=== PATIENT | male | born 1970 | race Caucasian/White ===

== ENCOUNTER 2018-10-10 12:44 | Emergency (ER) | payer BC, OTHER ==
[~2018-10-10] VITALS: Ht 180.3 cm; Wt 93.0 kg
[~2018-10-10 12:44] MED LIST: NOHOMEMEDICATIONS
[2018-10-10] MEDS ORDERED: FLEXERIL PO ×2 (12:47→13:57)
[2018-10-10] MEDS ORDERED: MOBIC15 MG PO (13:57)
[2018-10-10] MEDS ORDERED: NORCO 5-325 TA1 EACH PO (13:57)
[2018-10-10 13:58] VITALS: BP 116/75
== END 2018-10-10 13:59 | disposition home or self-care (01) ==
LOC: ER 12:44
DX: S16.1XXA Strain of muscle, fascia and tendon at neck level, initial encounter (principal); Z88.0 Allergy status to penicillin; Z88.6 Allergy status to analgesic agent; V89.0XXA Person injured in unspecified motor-vehicle accident, nontraffic, initial encounter; Y93.89 Activity, other specified; Y92.89 Other specified places as the place of occurrence of the external cause; Y99.8 Other external cause status

== ENCOUNTER 2018-11-17 12:13 | Inpatient (IN) | payer BC, OTHER ==
[~2018-11-17] VITALS: Ht 180.3 cm; Wt 86.2 kg
[2018-11-17] VITALS (14 sets, daily range): BP systolic 106–141; BP diastolic 69–100
--- NOTE | ~2018-11-17 | H ---
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 No prior cardiac history. He was working out on straight line in a gym when he had acute onset of sudden chest pain, pressure, right-sided. He has never experienced this before. It became severe and unremitting. He did drove home and [facility] brought him in. In the field, he had a recurrent of injury in the anterior wall. He has had significant 10/10 pain despite heparin, morphine and Ativan. ST segment elevation is significant in the anterior wall. This pain initiated approximately at 11:30 a.m. No prior history. He takes no medications. PAST MEDICAL HISTORY: Positive only for musculoskeletal bilateral carpal tunnel and ankle and wrist fractures and screws. 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 No children. He is . Social alcohol, no tobacco. FAMILY HISTORY: Positive for premature disease only involving his grandfather. REVIEW OF SYSTEMS: Essentially negative except for stated above. He has not really felt fatigue or any other symptomatology. PHYSICAL EXAMINATION: GENERAL: He appears to be fit and trim, but he is in significant discomfort. VITAL SIGNS: Pulse is 60s, blood pressure is fluctuating between 120 and 140 systolic. HEENT: Eyes reveal xanthelasmas. Pharynx is clear. NECK: Shows preserved upstrokes without JVD or bruits. LUNGS: Clear. CARDIOVASCULAR: Regular rate and rhythm, S1, S2, without murmur or gallop. ABDOMEN: Soft. No HSM or abdominal bruit. EXTREMITIES: Reveal no edema. Pulses are intact. NEUROLOGIC: Nonfocal. SKIN: Warm and dry without xanthoma or ulcer. MUSCULOSKELETAL: No gross joint deformity. ASSESSMENT: 1. Acute anterior wall myocardial infarction. 2. History of musculoskeletal fractures. [address] [address] HISTORY AND PHYSICAL Name: ASHWIN CADET [place] Room #: 170-5 ADM IN .R.#: [id number] Admission: 11/17/18 ������������������ Attend Phys: Joe White MD, Discharge: ������������������ Date of : 72 Report #: [id number] RECOMMENDATIONS AND PLAN: HIS ASPIRIN ALLERGIC AND PENICILLIN ALLERGIC, so no aspirin has been given. Heparin bolus and 80 mg of Lipitor. We will proceed to the catheterization lab for urgent and emergent intervention. It looks to be an extensive anterior wall myocardial infarction. Risks, benefits, alternatives were discussed with Robert and his . We will proceed on emergently. ��������������������������������������������� ���������������������������������������� By: ��������������������������������������������� 1335 1421 Joe White MD, FACC /nt
[~2018-11-17 12:13] MED LIST changes: +FLEXERIL PO; +MOBIC15 MG PO; +NORCO 5-325 TA1 EACH PO
[2018-11-17 12:32] LABS: HEMOGLOBIN 15.5 gm/dL (14.0-18.0); MCH 29.5 pg (26.0-34.0); MCHC 33.7 g/dL (28.0-37.0); MCV 87.4 fL (80.0-100.0); RBC 5.27 mil/uL (4.50-6.00); RDW 13.6 % (10.5-14.5); WBC 6.9 thou/uL (4.0-11.0)
[2018-11-17 12:36] LABS: ANION GAP 13 mmol/L (7-16); BUN 19 mg/dL (7-18); CALCIUM 9.7 mg/dL (8.5-10.1); CHLORIDE 101 mmol/L (98-107); CO2 25 mmol/L (21-32); CREATININE 1.4 mg/dL (0.7-1.3); GLUCOSE 146 mg/dL (74-106); POTASSIUM 3.2 mmol/L (3.5-5.1); SODIUM 139 mmol/L (136-145)
[2018-11-17 12:45] LABS: APTT 26.8 Seconds (24.5-32.8); INR 1.1; PROTIME 11.2 Seconds (9.3-11.4)
[2018-11-17 12:46] LABS: ALBUMIN 4.2 g/dL (3.4-5.0); DIRECT BILIRUBIN < 0.1 mg/dL (<0.1-0.3); SGOT 32 U/L (15-37); SGPT 36 U/L (30-65); TOTAL BILIRUBIN 0.4 mg/dL (<0.1-1.0); TOTAL PROTEIN 7.7 g/dL (6.4-8.2); TROPONIN-I 0.07 ng/mL (<0.06)
--- NOTE | 2018-11-17 19:30 | NUR ---
PATIENT ARRIVED FROM [facility]STRU[facility] BUS [place] AND [place]AXI, S/P CARDIAC CATH. RT GRION INTACT AND VSS. ON EPTIFIBATIDE DRIP. ADMISION COMPLETED, PATIENT OFF BED REST AND RT GRION SITE D/C/I. AND WILL CONTNUE WITH POC
[2018-11-18] VITALS: BP 124/90
[2018-11-18 00:09] VITALS: BP 124/90
[2018-11-18 03:25] LABS: HEMOGLOBIN 14.9 gm/dL (14.0-18.0); MCH 29.8 pg (26.0-34.0); MCHC 33.9 g/dL (28.0-37.0); MCV 88.1 fL (80.0-100.0); RBC 4.99 mil/uL (4.50-6.00); RDW 13.7 % (10.5-14.5); WBC 9.5 thou/uL (4.0-11.0)
--- NOTE | 2018-11-18 03:44 | NUR ---
ASSUMED PT CARE AT 1900. PT A/OX4, VITAL SIGNS STABLE, ASSESSMENT CHARTED. PT OFF BEDREST AT START OF SHIFT. PT ANXIOUS, XANAX GIVEN WHICH SEEMED TO HELP TEMPORARILY. PT HAD SOME TROUBLE FALLING ASLEEP, SLEEPING PILL GIVEN ONLY HELPED TEMPORARILY. AVOIDED INTERUPTIONS IN SLEEP. GROIN SITE CLEAN, DRY, INTACT. PROGRESSING TOWARD PLAN OF CARE. WILL CONTINUE TO MONITOR.
[2018-11-18 03:46] LABS: ALBUMIN 3.7 g/dL (3.4-5.0); ANION GAP 8 mmol/L (7-16); BUN 12 mg/dL (7-18); CALCIUM 8.3 mg/dL (8.5-10.1); CHLORIDE 103 mmol/L (98-107); CHOLESTEROL 195 mg/dL (<200); CO2 28 mmol/L (21-32); CREATININE 1.1 mg/dL (0.7-1.3); GLUCOSE 118 mg/dL (74-106); HDL CHOLESTEROL 40 mg/dL (>40); LDL CHOLESTEROL 140 mg/dL (<100); SGOT 276 U/L (15-37); SGPT 71 U/L (30-65); SODIUM 139 mmol/L (136-145); TC:HDL 4.9 Ratio (Not establshd); TOTAL BILIRUBIN 0.6 mg/dL (<0.1-1.0); TOTAL PROTEIN 6.9 g/dL (6.4-8.2); TRIGLYCERIDE 78 mg/dL (<150); VLDL 16 mg/dL (<40)
[2018-11-18 03:49] LABS: SERUM ASSESSMENT Clear
[2018-11-18 06:20] VITALS: BP 113/76
--- NOTE | 2018-11-18 08:03 | EKG ---
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: jlbrooklyn : 1970 Requested By: Layne Pierce Order Number: [id number] MD: Albert Lopez Measurements Intervals [place] Rate: 74 P: NE: QRS: 24 QRSD: 88 T: -39 QT: 401 QTc: 445 Interpretive Statements Atrial fibrillation Anterior infarct, acute (LAD) No previous ECG available for comparison Electronically Signed On 11-18-2018 8:02:56 CDT by Albert Lopez [email or web address] ��������������������������������������������� <ELECTRONICALLY SIGNED> ���������������������������������������� By: Albert Lopez MD, [facility] ��������������������������������������������� 11/18/18 0802 1215 14 Albert Lopez MD, FACC /EPI
--- NOTE | 2018-11-18 08:10 | EKG ---
[address] [address] ELECTROCARDIOGRAM REPORT Name: ASHWIN CADET Room #: 210-P ADM IN M.R.#: [id number] ������������������ Admission: 11/17/18 ������������������ Attend Phys: Joe White MD, Discharge: ������������������ Date of : 72 Report #: [id number] ����������������������������������������������������������������� [id number] THIS REPORT FOR: //name// [facility] Test Date: 2018-11-17 Test Time: 15:30:07 Pat Name: ASHWIN CADET Department: Room: 210 P Gender: M Application Development Specialist: Gena RIVERA : 1970 Requested By: Joe White Order Number: [id number] MD: Albert Lopez Measurements Intervals [place] Rate: 65 P: 18 [place]: 177 QRS: 33 QRSD: 94 T: 28 QT: 416 QTc: 433 Interpretive Statements Sinus rhythm Anteroseptal infarct, recent No previous ECG available for comparison Electronically Signed On 11-18-2018 8:10:14 CDT by Albert Lopez [email or web address] ��������������������������������������������� <ELECTRONICALLY SIGNED> ���������������������������������������� By: Albert Lopez MD, [facility] ��������������������������������������������� 11/18/18 0810 1530 29 Albert Lopez MD, FAC /EPI
--- NOTE | 2018-11-18 08:15 | EKG ---
[address] [address] ELECTROCARDIOGRAM REPORT Name: ASHWIN CADET Room #: 210-P ADM IN M.R.#: [id number] ������������������ Admission: 11/17/18 ������������������ Attend Phys: Joe White MD, Discharge: ������������������ Date of : 72 Report #: [id number] ����������������������������������������������������������������� [id number] THIS REPORT FOR: //name// [facility] Test Date: 2018-11-17 Test Time: 21:25:12 Pat Name: ASHWIN CADET Department: Room: 210 P Gender: M Engraver Jewelry: ANTHONY CABEZAS : 1970 Requested By: Joe White Order Number: [id number] MD: Eric Chan Measurements Intervals [place] Rate: 54 P: 42 NE: 163 QRS: 53 QRSD: 94 T: 28 QT: 412 QTc: 391 Interpretive Statements Sinus rhythm Anteroseptal infarct, age indeterminate No previous ECG available for comparison Electronically Signed On 11-18-2018 8:15:22 CDT by Eric Chan [email or web address] ��������������������������������������������� <ELECTRONICALLY SIGNED> ���������������������������������������� By: Eric Chan MD ��������������������������������������������� 11/18/18814 24 24 Eric Chan MD /MONET
--- NOTE | 2018-11-18 08:32 | EKG ---
[address] [place] [employer] [address] ELECTROCARDIOGRAM REPORT Name: ASHWIN CADET Room #: 210-P ADM IN M.R.#: [id number] ������������������ Admission: 11/17/18 ������������������ Attend Phys: Joe White MD, Discharge: ������������������ Date of : 72 Report #: [id number] ����������������������������������������������������������������� [id number] THIS REPORT FOR: //name// [facility] Test Date: 2018-11-18 Test Time: 07:16:27 Pat Name: ASHWIN CADET Department: Room: 210 P Gender: M Mail Order Sorter: MARTY : 1970 Requested By: Joe White Order Number: [id number] MD: Albert Lopez Measurements Intervals [place] Rate: 61 P: 22 ID: [id number] QRS: 40 QRSD: 93 T: 68 QT: 409 QTc: 412 Interpretive Statements Sinus rhythm Antroseptal infarct, recent No previous ECG available for comparison Electronically Signed On 11-18-2018 8:32:24 CDT by Albert Lopez [email or web address] ��������������������������������������������� <ELECTRONICALLY SIGNED> ���������������������������������������� By: Albert Lopez MD, [facility] ��������������������������������������������� 11/18/18 0832 0716 5 Albert Lopez MD, FACC /EPI
[2018-11-18 11:50] VITALS: BP 122/99
--- NOTE | 2018-11-18 11:53 | 2DMMODE ---
[facility] [address] [place] [address] 2 D/M-MODE ECHOCARDIOGRAM Name: ASHWIN CADET [place] Room #: 210-P ADM IN M.R.#: [id number] ������������� Admission: 11/17/18 ������������� Attend Phys: Joe White, Discharge: ��� ������������� ��� Date of : 72 Date of Service: 11/18/18 1153 �� Report #: [id number] �������� ��������������������������������������������[id number] THIS REPORT FOR: //name// APPROVED REPORT Study performed: 11/18/2018 11:00:22 EXAM: Comprehensive 2D, Doppler, and color-flow Echocardiogram Patient Location: Echo lab Room #: 210 Status: routine BSA: 2.06 HR: 58 bpm BP: 113/76 mmHg Rhythm: NSR Other Information Study Quality: Adequate/low window Indications Status post STEMI with intervention. Hx: HLP, HTN. 2D Dimensions RVDd: 43.69 mm IVSd: 12.00 (7-11mm) LVOT Diam: 20.60 (18-24mm) LVDd: 45.97 mm PWd: 11.00 (7-11mm) LVDs: 35.16 (25-40mm) Aortic Root: 38.40 mm Volumes Left Atrial Volume (Systole) Single Plane 4CH: 30.28 mL Single Plane 2CH: 45.79 mL LA ESV Index: 20.00 mL/m2 Aortic Valve AoV Peak Kristofer.: 2.44 m/s AO Peak Gr.: 23.81 mmHg LVOT Max P.49 mmHg AO Mean Gr.: 14.28 mmHg AO V2 Mean: 1.79 m/s LVOT Max V: 1.17 m/s AO V2 VTI: 48.79 cm DAYANA Vmax: 1.60 cm2 Mitral Valve E/A Ratio: 1.3 [facility] [place] [address] 2 D/M-MODE ECHOCARDIOGRAM Name: ASHWIN CADET [place] Room #: [address] [place] [address] IN M.R.#: [id number] ������������� Admission: 11/17/18 ������������� Attend Phys: Joe White, Discharge: ��� ������������� ��� Date of : 72 Date of Service: 11/18/18 1153 �� Report #: [id number] �������� ��������������������������������������������[id number] MV Decel. Time: 183.35 ms MV E Max Kristofer.: 0.67 m/s MV A Kristofer.: 0.50 m/s MV PHT: 53.17 ms IVRT: 76.12 ms Pulmonary Valve PV Peak Kristofer.: 1.04 m/s PV Peak Gr.: 4.35 mmHg Pulmonary Vein P Vein S: 0.44 m/s P Vein A: 0.29 m/s P Vein D: 0.49 m/s P Vein A Dur.: 115.3 msec P Vein S/D Ratio: 0.90 Tricuspid Valve TR Peak Kristofer.: 2.50 m/s RAP Estimate: 5.00 mmHg TR Peak Gr.: 25.01 mmHg PA Pressure: 30.00 mmHg Left Ventricle The left ventricle is normal size. mod hypokinesis of ant apex distal septum Mild left ventricular hypertrophy. Left ventricular systolic function is mildly decreased. LVEF is 45%. Moderate diastolic dysfunction is present (pseudonormal filling). Right Ventricle The right ventricle is normal size. The right ventricular systolic function is normal. Atria The left atrium size is normal. The right atrium size is normal. Aortic Valve Aortic valve is calcified; possibly bicuspid. Trace aortic regurgitation. There is mild valvular aortic stenosis. Calculated aortic valve area is 1.6 cm2 with maximum pressure gradient of 24 mmHg and mean pressure gradient of 14 mmHg. Mitral Valve The mitral valve is normal in structure. Mild mitral regurgitation. Tricuspid Valve The tricuspid valve is normal in structure. Trace to mild tricuspid regurgitation. Estimated PAP is 30mmHg. [address] [address] 2 D/M-MODE ECHOCARDIOGRAM Name: ASHWIN CADET [place] Room #: [address] [place] [address] IN .R.#: [id number] ������������� Admission: 11/17/18 ������������� Attend Phys: Joe White, Discharge: ��� ������������� ��� Date of : 72 Date of Service: 11/18/18 1153 �� Report #: [id number] �������� ��������������������������������������������[id number] Pulmonic Valve Pulmonic valve is not well visualized. Great Vessels Aortic root measures at the upper limits of normal. Ascending aorta is not well visualized. IVC is normal in size and collapses >50% with inspiration. Pericardium There is no pericardial effusion. <Conclusion> The left ventricle is normal size. mod hypokinesis of ant apex distal septum LVEF is 45%. Moderate diastolic dysfunction is present (pseudonormal filling). The right ventricle is normal size. The left atrium size is normal. Aortic valve is calcified; possibly bicuspid. Trace aortic regurgitation. There is mild valvular aortic stenosis. Calculated aortic valve area is 1.6 cm2 with maximum pressure gradient of 24 mmHg and mean pressure gradient of 14 mmHg. Mild mitral regurgitation. Trace to mild tricuspid regurgitation. Estimated PAP is 30mmHg. Aortic root measures at the upper limits of normal. There is no pericardial effusion. ��������������������������������������������� <ELECTRONICALLY SIGNED> ���������������������������������������� By: Joe White MD, FACC ��������������������������������������������� 11/18/18 1153 1153 1153 Joe White MD, FACC /INF
[2018-11-18 15:56] VITALS: BP 118/76
--- NOTE | 2018-11-18 18:22 | NUR ---
ASSUMED CARE AT SHIFT CHANGE, ALERT AND ORIENTED X4. ANXIUOS AND FRUSTRATED ABOUT HIS DX. VSS AND SR. DENIES ANY CP OR DISCOMFORT. RT GRION REMAINED INTACT. CARDIAC REHAB TEACHING WAS DONE. WILL CONTINUE WITH POC.
[2018-11-18 20:41] VITALS: BP 117/83
--- NOTE | 2018-11-19 03:25 | NUR ---
ASSUMED PT CARE AT 1900. PT A/OX4, VITAL SIGNS STABLE, ASSESSMENT CHARTED. NO COMPLAINTS OF PAIN. RESTED WELL THROUGH THE NIGHT. GROIN SITE REMAINS INTACT. PROGRESSING TOWARD PLAN OF CARE. POSSIBLE DISCHARGE IN AM. WILL CONTINUE TO MONITOR.
[2018-11-19 05:07] VITALS: BP 110/73
[2018-11-19] MEDS ORDERED: LIPITOR40 MG PO (08:03)
[2018-11-19] MEDS ORDERED: COZAAR 25 MG TA25 M1 PO (08:03)
[2018-11-19] MEDS ORDERED: ASPIR 8181 MG PO (08:03)
[2018-11-19] MEDS ORDERED: EFFIENT10 MG PO (08:03)
[2018-11-19] MEDS ORDERED: METOPROLOL SUCC25 M1 PO (08:03)
[2018-11-19 08:05] VITALS: BP 117/83
[2018-11-19] MEDS ORDERED: ALPRAZOLAM 0.0.25 M1 PO (08:59)
[2018-11-19 09:04] VITALS: BP 117/83
--- NOTE | 2018-11-19 09:14 | NUR ---
ASSUMED CARE AT SHIFT CHANGE, ALERT AND ORIENTED X4. PATIENT ANXIUOS TO GO HOME. DISCHARGE AND MEDICATION INSTRUCTIONS, AND PATIENT AND SPOUSE VERBALIZED UNDERSTANDING.
--- NOTE | 2018-11-22 15:05 | CATHLAB ---
[facility] [address] [place] [address] INVASIVE PROCEDURE REPORT Name: ASHWNI CADET LIN[place] Room #: 210-P DIS IN ..#: [id number] ������������� Admission: 11/17/18 ������������� Attend Phys: Joe White, Discharge: ��� 11/19/18 ������������� ��� Date of : 72 Date of Service: 11/22/18 1505 �� Report #: [id number] �������� ��������������������������������������������[id number] THIS REPORT FOR: //name// APPROVED REPORT Study performed: 11/17/2018 12:44:55 Patient Details Patient Status: In-Patient Room #: The patient is a 48 year-old male Event Personnel Joe White Vineyard Supervisor, Jenniffer Dejesus RN RN, [place] Dowling Monitor, Jannie GuzmanIS Scrub Procedures Performed Art Access - R femoral artery* 37123 Initial Mod Sed Same Phys/QHP Gr5y 527055 97062 Mod Sed Same Phys/QHP Ea [id number] Left Heart Cath w/or w/o Coronaries [id number] [facility] Revasc AMI Total/Sub Single LAD C9606 AMIREVSING Hemostasis w/ Mynx Indication STEMI Procedure Narrative The patient was brought emergently to the Cardiac Catheterization Laboratory and was prepped and draped in a sterile manner. The Right Groin^ was infiltrated with 1% Lidocaine subcutaneous anesthesia. A PINNACLE 6FR Sheath #[id number] sheath was inserted into the RFA^. Coronary angiography was performed using coronary diagnostic catheters. The right coronary system was accessed and visualized with a JR 4 catheter. The left coronary system was accessed and visualized with a LAUNCHER 6FR EBU 4.5 #[id number] catheter. The left ventricle was accessed and visualized with a Pigtail catheter. Left ventriculogram was performed in [place]OU[place] projection. Closure device was deployed with a 6 Fr Mynx. The patient tolerated the procedure well and there were no complications associated with the procedure. There was no hematoma. Intraoperative Conscious Sedation Sedation start time: 12:53 Case end Time: 14:15 Fentanyl 100 mcg Versed 2 mg Fluoro Time: 9.[address] [address] INVASIVE PROCEDURE REPORT Name: ASHWIN CADET [place] Room #: [address] [place] [address] IN ..#: [id number] ������������� Admission: 11/17/18 ������������� Attend Phys: Joe White, Discharge: ��� 11/19/18 ������������� ��� Date of : 72 Date of Service: 11/22/18 1505 �� Report #: [id number] �������� ��������������������������������������������[id number] Dose: DAP 9246.00 cGycm2 1064 mGy Contrast Type and Amount: Visipaque 205 ml Hemodynamics The aortic pressure is 128/79 mmHg with a mean of 102 mmHg. The left ventricular pressure is 158/15 mmHg with a mean of mmHg. The left ventricular end diastolic pressure is 27 mmHg. PCI Technique Lesion Percutaneous coronary intervention was performed on the proximal left anterior descending artery segment. A LAUNCHER 6FR EBU 4.5 #[id number] Guide Catheter was used to engage the Left Main ostium. A Luge Wire .014 x 182CM #[id number] Interventional Guidewire was used to cross the lesion. BALLOON DILATION A Balloon catheter Sprinter OTW 3.0 x 15 #[id number] was inserted and inflated up to 4.00atm for 20seconds. Additional Inflation: 14.00atm for 21seconds. STENT DEPLOYMENT A drug-eluting stent RESOLUTE PATRICIA OTW 3.5 X 15 #[id number] was inserted and inflated up to 14.00atm for 33seconds. Conclusion #1 emergent PTCA stent of a proximal LAD occlusion acute infarct vessel a splint of a 3.5 by 15 resolute drug-eluting stent postdilated 3.7 mm YARI grade 3 flow resolution of thrombus is noted this vessel extends around the apex #2 left main free of disease #3 circumflex OM nondominant with mild irregularity #4 large dominant right coronary artery widely patent #5 normal left ventricular size a moderate area of anterior apical inferior apical hypokinesis EF 40-45% ( suspect stunning) Recommendations and plan: Continue aggressive risk factor modification. Dual antiplatelet therapy indefinitely. Patient is hemodynamically improved and pain-free transfer to CCU to follow stent protocol. ��������������������������������������������� <ELECTRONICALLY SIGNED> ���������������������������������������� By: Joe White MD, [facility] ��������������������������������������������� 11/22/18 1505 1505 1505 Joe White MD, FACC /INF
== END 2018-11-19 09:24 | disposition home or self-care (01) | DRG 247 ==
LOC: ER 12:13 → EROBS 12:34 → 2N 12:34
PROVIDERS: Emergency Medicine; ADMIT Internal Medicine Cardiovascular Disease
PROC: B2111ZZ Fluoroscopy of Multiple Coronary Arteries using Low Osmolar Contrast (ICD-10-PCS; principal; 2018-11-17)
PROC: B2151ZZ Fluoroscopy of Left Heart using Low Osmolar Contrast (ICD-10-PCS; principal; 2018-11-17)
PROC: 4A023N7 Measurement of Cardiac Sampling and Pressure, Left Heart, Percutaneous Approach (ICD-10-PCS; principal; 2018-11-17)
PROC: 027034Z Dilation of Coronary Artery, One Artery with Drug-eluting Intraluminal Device, Percutaneous Approach (ICD-10-PCS; principal; 2018-11-17)
DX: I21.09 ST elevation (STEMI) myocardial infarction involving other coronary artery of anterior wall (principal); M19.90 Unspecified osteoarthritis, unspecified site; E78.5 Hyperlipidemia, unspecified; I10 Essential (primary) hypertension; I25.5 Ischemic cardiomyopathy; I35.0 Nonrheumatic aortic (valve) stenosis; Z79.1 Long term (current) use of non-steroidal anti-inflammatories (NSAID); Z79.899 Other long term (current) drug therapy; Z88.0 Allergy status to penicillin; Z88.6 Allergy status to analgesic agent; Z84.89 Family history of other specified conditions
CPT/HCPCS: 10081

== ENCOUNTER 2019-04-02 21:40 | Emergency (ER) | payer BC, OTHER ==
[~2019-04-02] VITALS: Ht 180.3 cm; Wt 90.7 kg
[~2019-04-02 21:40] MED LIST changes: +ALPRAZOLAM 0.0.25 M1 PO; +ASPIR 8181 MG PO; +COZAAR 25 MG TA25 M1 PO; +EFFIENT10 MG PO; +LIPITOR40 MG PO; +METOPROLOL SUCC25 M1 PO
[2019-04-02 23:25] VITALS: BP 142/83
== END 2019-04-02 23:25 | disposition home or self-care (01) ==
LOC: ER 21:40
DX: S05.02XA Injury of conjunctiva and corneal abrasion without foreign body, left eye, initial encounter (principal); H11.32 Conjunctival hemorrhage, left eye; W54.0XXA Bitten by dog, initial encounter; Y93.89 Activity, other specified; Y92.89 Other specified places as the place of occurrence of the external cause; Y99.8 Other external cause status

== ENCOUNTER → 2021-04-05 | Outpatient (CLI) | payer BC, OTHER | LOC: SJCVCIMAG 03-28 15:54 | PROVIDERS: ATTEND Internal Medicine Cardiovascular Disease | DX: I25.10 Atherosclerotic heart disease of native coronary artery without angina pectoris (principal); Q23.1 Congenital insufficiency of aortic valve ==